=== PATIENT | female | born 1970 | race Two or more races ===

== ENCOUNTER 2016-11-30 12:11 | Emergency (ER) | payer OTHER ==
[2016-11-30 12:16] VITALS: RESP 16; TEMP 98.2
[2016-11-30] MEDS ORDERED: ONDANSETRON 4 MG/2 ML VIAL IVP ONE (12:31)
[2016-11-30] MEDS ORDERED: KETOROLAC 30 MG/1 ML SDV IVP ONE (12:31)
[2016-11-30] MEDS ORDERED: NS 1,000 ML IV ONE (12:31)
--- NOTE | 2016-11-30 12:31 | EDPHY ---
H & P Stated Complaint: LUQ Abd pain - Personal History LMP (Females 10-55): Irregular Current Tetanus/Diphtheria Vaccine: Unsure Current Tetanus Diphtheria and Acellular Pertussis (TDAP): Unsure - Medical/Surgical History Hx Asthma: No Hx Chronic Respiratory Disease: No Hx Diabetes: No Hx Cardiac Disease: No Hx Renal Disease: No Hx Cirrhosis: No Hx Alcoholism: No Hx HIV/AIDS: No Hx Splenectomy or Spleen Trauma: No Other PMH: Medical hypothyroid. surgery x 2, cholecystectomy - Social History Smoking Status: Never smoked Time Seen by Provider: 11/30/16 12:23 HPI/ROS: CHIEF COMPLAINT: Left upper quadrant pain times 24 hours HISTORY OF PRESENT ILLNESS: 46-year-old female with remote history of cholecystectomy, complaining left upper quadrant abdominal pain with radiation to left flank with associated nausea, vomiting, diarrhea for the past 24 hours. No melena or hematochezia. Atraumatic. No rash or vesicles. No urinary abnormality. No fever or chills. No flu-like symptoms. No leg swelling. No cough. No hemoptysis. Nonsmoker. No exogenous estrogen use. PRIMARY CARE PROVIDER: [facility] REVIEW OF SYSTEMS: A ten point review of systems was performed and is negative with the exception of the items mentioned in the HPI PAST MEDICAL & SURGICAL HISTORY: Cholecystectomy. . SOCIAL HISTORY:nonsmoker PHYSICAL EXAM (Prior to examination, patient consented to physical exam, hands were washed and my usual and customary physical exam procedures followed) 1) GENERAL: Well-developed, well-nourished, alert and oriented. Appears uncomfortable, guarding left upper quadrant 2) HEAD: Normocephalic, atraumatic 3) HEENT: Pupils equal, round, reactive to light bilaterally. Sclera anicteric. 4) NECK: Full range of motion, no meningeal signs. 5) LUNGS: Clear auscultation bilaterally, no wheezes, no rhonchi, no retractions. 6) HEART: Regular rate and rhythm, no murmur, no heave, no gallop. 7) ABDOMEN: guarding abdomen, tender to palpation left upper quadrant negative McBurney's, 8) MUSCULOSKELETAL: No peripheral edema or discoloration. 9) BACK: Positive left CVA tenderness, 10) SKIN: No rash, no petechiae. 11) Psychiatric: Patient is oriented X 3, there is no agitation. DIFFERENTIAL DIAGNOSIS: My differential diagnosis includes, but is not limited to, acute appendicitis, acute cholecystitis, bowel obstruction, acute pancreatitis, ovarian torsion, ectopic , gastritis and urinary tract infection. The patient understands that this diagnosis is provisional and can never be 100% accurate. This is a partial list of diagnoses considered. These considerations are based on history, physical exam, past history and reassessment. (Gato Mojica) Constitutional: Initial Vital Signs Temperature (C) 36.8 C 11/30/16 12:13 Heart Rate 72 11/30/16 12:13 Respiratory Rate 16 11/30/16 12:13 Blood Pressure 104/64 11/30/16 12:13 O2 Sat (%) 98 11/30/16 12:13 O2 Delivery Mode Room Air Allergies/Adverse Reactions: No Known Allergies Allergy (Unverified 11/02/13 08:48) Home Medications: Medication Instructions Recorded LEVOXYL 06/18/09 Glycerin/Propylene Glycol 1 drop LEFTEYE Q2H PRN #15 ml 11/02/13 [LUBRICANT EYE DROPS] Valacyclovir HCl [Valtrex] 1,000 mg PO TID #21 tab 11/02/13 predniSONE 60 mg PO DAILY #21 tab 11/02/13 Cephalexin [Keflex] 500 mg PO TID 7 Days 11/30/16 Pantoprazole Sodium [Protonix 40mg 40 mg PO DAILY #30 tab 11/30/16 (RX)] Ranitidine HCl [Zantac] 150 mg PO BID #30 tablet 11/30/16 Medical Decision Making - Diagnostics Imaging Results: Imaging Impressions Abdomen CT 11/30/16 13:02 Impression: 1. No acute abdominal or pelvic abnormality. Specifically no findings to suggest small bowel obstruction. 2. See above report for additional findings. Images reviewed by myself (Gato Mojica) ED Course/Re-evaluation: The patient has been re-evaluated with serial examinations. Discussed her imaging results, discussed her laboratory results discussed case with secondary supervising physician Dr. Jorge Ham in the ER. She does have bacteriuria, urine is cultured will start patient on antibiotics. Doubt pyelonephritis, doubt urosepsis. Doubt pancreatitis, doubt cardiac or pulmonary etiology such as pulmonary embolus she has reproducible pain with palpation in the epigastrium , no history of cardiac disease, history of thromboembolic disorder, negative perc score. (Gato Mojica) Other Provider: [id number]: Assessed patient in conjunction with MAUREEN Mojica. This is a 46 y/o female complaining of left abdominal and flank pain. She has left CVA tenderness on exam that could be indicative of early pyelonephritis. Her abdominal tenderness is minimal. CT abdomen was negative. Recommended PO antibiotics and discharge home with follow up. (Jorge Ham) - Data Points Laboratory Results: Laboratory Results 11/30/16 12:30 11/30/16 12:30 11/30/16 11/30/16 11/30/16 12:51 12:30 12:30 WBC RBC Hgb Hct MCV MCH MCHC RDW Plt Count MPV Neut % (Auto) Lymph % (Auto) [place] % (Auto) Eos % (Auto) Baso % (Auto) Nucleat RBC Rel Count Absolute Neuts (auto) Absolute Lymphs (auto) Absolute Monos (auto) Absolute Eos (auto) Absolute Basos (auto) Absolute Nucleated RBC Immature Gran % Immature Gran # Sodium 141 mEq/L mEq/L (134-144) Potassium 4.5 mEq/L mEq/L (3.5-5.2) Chloride 109 mEq/L mEq/L (97-110) Carbon Dioxide 23 mEq/l mEq/l (22-31) Anion Gap 9 mEq/L mEq/L (8-16) BUN 12 mg/dL mg/dL (7-23) Creatinine 1.1 mg/dL H mg/dL (0.6-1.0) Estimated GFR 54 Glucose 95 mg/dL mg/dL (70-100) Calcium 9.5 mg/dL mg/dL (8.5-10.4) Total Bilirubin 0.8 mg/dL mg/dL (0.1-1.4) Conjugated Bilirubin 0.3 mg/dL mg/dL (0.0-0.5) Unconjugated Bilirubin 0.5 mg/dL mg/dL (0.0-1.1) AST 22 IU/L IU/L (14-46) ALT 29 IU/L IU/L (9-52) Alkaline Phosphatase 114 IU/L IU/L (38-126) Total Protein 7.7 g/dL g/dL (6.3-8.2) Albumin 4.4 g/dL g/dL (3.5-5.0) Lipase 88.0 IU/L IU/L (23-300) Beta HCG, Qual NEGATIVE Urine Color PALE YELLOW Urine Appearance CLEAR Urine pH 8.0 H (5.0-7.5) Ur Specific [place] 1.002 (1.002-1.030) Urine Protein 2+ H (NEGATIVE) Urine Ketones NEGATIVE (NEGATIVE) Urine Blood 1+ H (NEGATIVE) Urine Nitrate NEGATIVE (NEGATIVE) Urine Bilirubin NEGATIVE (NEGATIVE) Urine Urobilinogen NEGATIVE EU EU (0.2-1.0) Ur Leukocyte Esterase NEGATIVE (NEGATIVE) Urine RBC 1-3 /hpf /hpf (0-3) Urine WBC 1-3 /hpf /hpf (0-3) Ur Epithelial Cells TRACE /lpf /lpf (NONE-1+) Urine Bacteria TRACE /hpf H /hpf (NONE SEEN) Urine Glucose NEGATIVE (NEGATIVE) 11/30/16 12:30 WBC 12.79 10^3/uL H 10^3/uL (3.80-9.50) RBC 5.16 10^6/uL 10^6/uL (4.18-5.33) Hgb 14.4 g/dL g/dL (12.6-16.3) Hct 44.3 % % (38.0-47.0) MCV 85.9 fL fL (81.5-99.8) MCH 27.9 pg pg (27.9-34.1) MCHC 32.5 g/dL g/dL (32.4-36.7) RDW 15.2 % % (11.5-15.2) Plt Count 301 10^3/uL 10^3/uL (150-400) MPV 10.3 fL fL (8.7-11.7) Neut % (Auto) 67.8 % % (39.3-74.2) Lymph % (Auto) 21.5 % % (15.0-45.0) [place] % (Auto) 9.4 % % (4.5-13.0) Eos % (Auto) 0.4 % L % (0.6-7.6) Baso % (Auto) 0.5 % % (0.3-1.7) Nucleat RBC Rel Count 0.0 % % (0.0-0.2) Absolute Neuts (auto) 8.68 10^3/uL H 10^3/uL (1.70-6.50) Absolute Lymphs (auto) 2.75 10^3/uL 10^3/uL (1.00-3.00) Absolute Monos (auto) 1.20 10^3/uL H 10^3/uL (0.30-0.80) Absolute Eos (auto) 0.05 10^3/uL 10^3/uL (0.03-0.40) Absolute Basos (auto) 0.06 10^3/uL 10^3/uL (0.02-0.10) Absolute Nucleated RBC 0.00 10^3/uL 10^3/uL (0-0.01) Immature Gran % 0.4 % % (0.0-1.1) Immature Gran # 0.05 10^3/uL 10^3/uL (0.00-0.10) Sodium Potassium Chloride Carbon Dioxide Anion Gap BUN Creatinine Estimated GFR Glucose Calcium Total Bilirubin Conjugated Bilirubin Unconjugated Bilirubin AST ALT Alkaline Phosphatase Total Protein Albumin Lipase Beta HCG, Qual Urine Color Urine Appearance Urine pH Ur Specific [place] Urine Protein Urine Ketones Urine Blood Urine Nitrate Urine Bilirubin Urine Urobilinogen Ur Leukocyte Esterase Urine RBC Urine WBC Ur Epithelial Cells Urine Bacteria Urine Glucose Medications Given: Discontinued Medications Al Hydroxide/Mg Hydroxide (Maalox Susp) 30 ml PO ONCE ONE Stop: 11/30/16 15:15 Last Admin: 11/30/16 15:25 Dose: 30 ml Cephalexin HCl (Keflex) 500 mg PO EDNOW ONE PRN Reason: Protocol Stop: 11/30/16 16:01 Last Admin: 11/30/16 16:01 Dose: 500 mg Hyoscyamine Sulfate (Levsin, Hyomax-Sl) 0.25 mg PO ONCE ONE Stop: 11/30/16 15:15 Last Admin: 11/30/16 15:25 Dose: 0.25 mg Sodium Chloride (Ns) 1,000 mls @ 0 mls/hr IV ONCE ONE PRN Reason: Wide Open Stop: 11/30/16 12:32 Last Admin: 11/30/16 12:45 Dose: 1,000 mls Ketorolac Tromethamine (Toradol) 30 mg IVP EDNOW ONE Stop: 11/30/16 12:32 Last Admin: 11/30/16 12:45 Dose: 30 mg Lidocaine (Lidocaine 2% Viscous) 15 ml PO ONCE ONE Stop: 11/30/16 15:15 Last Admin: 11/30/16 15:25 Dose: 15 ml Morphine Sulfate (Morphine) 4 mg IVP EDNOW ONE Stop: 11/30/16 16:05 Last Admin: 11/30/16 16:11 Dose: 4 mg Ondansetron HCl (Zofran) 4 mg IVP EDNOW ONE Stop: 11/30/16 12:32 Last Admin: 11/30/16 12:44 Dose: 4 mg Departure - Departure Disposition: Home, Routine, Self-Care Clinical Impression: Epigastric pain, Left upper quadrant abdominal pain of unknown etiology, Pyelonephritis Urinary tract infection Qualifiers: Urinary tract infection type: acute cystitis Hematuria presence: with hematuria Qualified Code(s): N30.01 - Acute cystitis with hematuria Condition: Good Instructions: Urinary Tract Infection in Women (ED), Abdominal Pain (ED) Additional Instructions: Seek immediate medical attention if you develop new or worsening symptoms, if you develop fevers, chills, inability to tolerate oral intake or any other symptoms that concerns you. Referrals: Miladis Antony PA [Primary Care Provider] - 1-2 days without fail Prescriptions: Cephalexin [Keflex] 500 mg PO TID 7 Days Pantoprazole Sodium [Protonix 40mg (RX)] 40 mg PO DAILY #30 tab Ranitidine HCl [Zantac] 150 mg PO BID #30 tablet
[2016-11-30 12:36] LABS: % IMMATURE GRANULYOCYTES 0.4 % (0.0-1.1); ABSOLUTE IMMATURE GRANULOCYTES 0.05 10^3/uL (0.00-0.10); ADD DIFF? NO; ADD MORPH? NO; ADD SCAN? NO; ATYPICAL LYMPHOCYTE FLAG 0 (0-99); FRAGMENT RBC FLAG 0 (0-99); HEMATOCRIT 44.3 % (38.0-47.0); HEMOGLOBIN 14.4 g/dL (12.6-16.3); LEFT SHIFT FLG 0 (0-99); LIPEMIA HEMOLYSIS FLAG 80 (0-99); MEAN CELL HEMOGLOBIN 27.9 pg (27.9-34.1); MEAN CELL HEMOGLOBIN CONCENTR. 32.5 g/dL (32.4-36.7); MEAN CELL VOLUME 85.9 fL (81.5-99.8); MEAN PLATELET VOLUME 10.3 fL (8.7-11.7); PLATELET CLUMPS FLAG 10 (0-99); PLATELET COUNT 301 10^3/uL (150-400); RED BLOOD CELL COUNT 5.16 10^6/uL (4.18-5.33); RED CELL DISTRIBUTION WIDTH 15.2 % (11.5-15.2)
[2016-11-30 12:51] LABS: ALANINE AMINOTRANSFERASE 29 IU/L (9-52); ALBUMIN 4.4 g/dL (3.5-5.0); ALKALINE PHOSPHATASE 114 IU/L (38-126); ANION GAP 9 mEq/L (8-16); ASPARTATE AMINOTRANSFERASE 22 IU/L (14-46); BILIRUBIN,TOTAL 0.8 mg/dL (0.1-1.4); BILIRUBIN-CONJUGATED 0.3 mg/dL (0.0-0.5); BILIRUBIN-UNCONJUGATED 0.5 mg/dL (0.0-1.1); CALCIUM 9.5 mg/dL (8.5-10.4); CARBON DIOXIDE 23 mEq/l (22-31); CHLORIDE 109 mEq/L (97-110); CREATININE 1.1 mg/dL (0.6-1.0); GLOMERULAR FILTRATION RATE 54; GLUCOSE 95 mg/dL (70-100); POTASSIUM 4.5 mEq/L (3.5-5.2); SODIUM 141 mEq/L (134-144); TOTAL PROTEIN 7.7 g/dL (6.3-8.2)
[2016-11-30] MEDS ORDERED: IOPAMIDOL (ISOVUE-300) 100 ML BTL ONE (13:07)
[2016-11-30 13:26] LABS: COLOR PALE YELLOW; LEUKOCYTE ESTERASE,URINE NEGATIVE (NEGATIVE); NITRITE,URINE NEGATIVE (NEGATIVE)
[2016-11-30 13:33] LABS: BACTERIA TRACE /hpf (NONE SEEN)
[2016-11-30] MEDS ORDERED: LIDOCAINE 2% VISCOUS 15 ML UDCUP PO ONE (15:14)
[2016-11-30] MEDS ORDERED: HYOSCYAMINE SULFATE 0.125 MG TAB PO ONE (15:14)
[2016-11-30] MEDS ORDERED: MAG HYDROX/AL HYDROX/SIMETH 30 ML UDCUP PO ONE (15:14)
[2016-11-30] MEDS ORDERED: CEPHALEXIN 500 MG CAP PO ONE (16:00)
[2016-11-30 16:41] VITALS: BP 95/62; PULSE 78; O2SAT 98
== END 2016-11-30 16:40 | disposition home or self-care (01) ==
DX: N30.01 Acute cystitis with hematuria (principal); N12 Tubulo-interstitial nephritis, not specified as acute or chronic; Z90.49 Acquired absence of other specified parts of digestive tract
CPT/HCPCS: 96374; J1885; J2405; Q9967